=== PATIENT | male | born 1980 | race African-American/Black ===

== ENCOUNTER 2022-02-03 14:04 | Emergency (ER) | payer OTHER ==
[2022-02-03] MEDS ORDERED: Ketorolac 60 MG/2 ML SDV IM ONE (15:30)
[2022-02-03] MEDS ORDERED: Acetaminophen/oxyCODONE 325-10 MG Tab PO ONE (15:31)
== END 2022-02-03 18:09 | disposition home or self-care (01) ==
LOC: MW.ED 14:04
DX: S89.91XA Unspecified injury of right lower leg, initial encounter (principal); S79.911A Unspecified injury of right hip, initial encounter; S39.92XA Unspecified injury of lower back, initial encounter; E11.9 Type 2 diabetes mellitus without complications; W17.89XA Other fall from one level to another, initial encounter
CPT/HCPCS: 72128; 72131; 73502; 73562; 96372; 99283; A9270; J1885